=== PATIENT | male | born 1990 | race Caucasian/White ===

== ENCOUNTER 2017-03-13 17:12 | Emergency (ER) | payer SELFPAY ==
[~2017-03-13] VITALS: Ht 177.8 cm; Wt 88.6 kg
[2017-03-13] MEDS ORDERED: BACTRIM DS TAB1 EACH PO (17:55)
[2017-03-13 18:11] VITALS: BP 129/91
== END 2017-03-13 18:17 | disposition home or self-care (01) ==
LOC: ED 17:12
DX: L02.511 Cutaneous abscess of right hand (principal); F17.210 Nicotine dependence, cigarettes, uncomplicated

== ENCOUNTER 2021-01-29 20:40 | Emergency (ER) | payer SELFPAY ==
[~2021-01-29 20:40] MED LIST: BACTRIM DS TAB1 EACH PO
[2021-01-29] MEDS ORDERED: Cholesterol med (21:13)
[2021-01-29] MEDS ORDERED: DOXYCYCLINE HY100 M5 PO (21:34)
[2021-01-29 21:44] VITALS: BP 124/93
== END 2021-01-29 21:45 | disposition home or self-care (01) ==
LOC: ED 20:40
DX: L02.511 Cutaneous abscess of right hand (principal); S80.11XA Contusion of right lower leg, initial encounter; F17.210 Nicotine dependence, cigarettes, uncomplicated; W22.8XXA Striking against or struck by other objects, initial encounter